=== PATIENT | male | born 1975 | race Caucasian/White ===

== ENCOUNTER 2021-04-06 13:23 | Outpatient (CLI) | payer BC ==
[~2021-04-06] VITALS: Ht 165.1 cm; Wt 79.0 kg
[~2021-04-06 13:23] MED LIST: ALBUTEROL 90 MCG/ACT 8GM HFA INHALER INH PRN; ALBUTEROL SULFATE 2.5 MG/0.5 ML INH NEB SOLN INH PRN; EPINEPHrine INJ 1 MG/ML 1ML AMP IM PRN; NS 1,000 ML IV SCH; diphenhydrAMINE 50MG/ML VIAL (J1200) IV PRN; methylPREDNISolone 125MG 2ML VIAL IV PRN
[2021-04-06] MEDS ORDERED: diphenhydrAMINE 25MG CAP PO ONE (13:30)
[2021-04-06] MEDS ORDERED: ACETAMINOPHEN TAB 650MG DOSE (2X325MG) PO ONE (13:30)
[2021-04-06] MEDS ORDERED: [UNRECOGNIZED DRUG - OTHER] IV ONE ×2 (13:30)
[2021-04-06 13:51] VITALS: BP 120/68
[2021-04-06 14:21] VITALS: BP 139/74
[2021-04-06 14:51] VITALS: BP 111/65
[2021-04-06 15:51] VITALS: BP 120/70
== END 2021-04-06 15:51 | disposition home or self-care (01) ==
LOC: M OPCLI4PR 13:23
PROVIDERS: ATTEND Physician Assistant Medical
DX: U07.1 COVID-19 (principal)

== ENCOUNTER → 2022-08-21 | Outpatient (CLI) | payer BC ==
[2022-08-21 13:29] LABS: HEMATOCRIT 43.6 % (42.0-52.0); HEMOGLOBIN 14.6 g/dl (13.5-17.5); MEAN CORPUSCULAR HEMOGLOBIN 31.5 pg (27.0-33.0); MEAN CORPUSCULAR HGB CONC 33.5 g/dl (32.0-36.5); PLATELET COUNT, AUTOMATED 223 10^3/uL (150-450); RED BLOOD COUNT 4.64 10^6/uL (4.30-6.10); WHITE BLOOD COUNT 15.1 10^3/uL (4.0-10.0)
[2022-08-21 14:01] LABS: ATYPICAL LYMPH 30 % (0-5); LYMPHOCYTES 32 % (16-44); MONOCYTES 9 % (0-5); NEUTROPHILS 29 % (28-66); TOXIC VACUOLATION 1+
[2022-08-21 14:02] LABS: ANISOCYTOSIS 1+; PLATELET ESTIMATE NORMAL (NORMAL); TOXIC GRANULATION 1+
[2022-08-21 14:30] LABS: ALBUMIN 3.6 G/DL (3.2-5.2); ALKALINE PHOSPHATASE 357 U/L (46-116); ALT/SGPT 451 U/L (7.0-40); AST/SGOT 187 U/L (<34); BILIRUBIN,TOTAL 0.7 MG/DL (0.3-1.2); BLOOD UREA NITROGEN 13 MG/DL (9-23); CALCIUM LEVEL 8.7 MG/DL (8.5-10.1); CARBON DIOXIDE LEVEL 28 MMOL/L (20-31); CHLORIDE LEVEL 104 MMOL/L (98-107); CREATININE FOR GFR 0.93 MG/DL (0.70-1.30); GLOMERULAR FILTRATION RATE > 60.0 (>60); GLUCOSE, FASTING 106 MG/DL (60-100); SODIUM LEVEL 137 MMOL/L (136-145); TOTAL PROTEIN 7.3 G/DL (5.7-8.2)
[2022-08-22 14:08] LABS: EBV AB TO NUCLEAR ANTIGEN <18.0 U/mL (0.0-17.9); EBV VIRAL CAPSID AG IgG 48.3 U/mL (0.0-17.9); EBV VIRAL CAPSID AG IgM >160.0 U/mL (0.0-35.9)
== END ==
LOC: M WUC 09:15
PROVIDERS: ATTEND Physician Assistant
DX: J03.90 Acute tonsillitis, unspecified (principal); J06.9 Acute upper respiratory infection, unspecified; R50.9 Fever, unspecified

== ENCOUNTER 2024-07-12 08:09 | Day surgery (SDC) | payer BC ==
[~2024-07-12] VITALS: Ht 165.1 cm; Wt 80.1 kg
[2024-07-12] MEDS ORDERED: propofoL 200 MG/20 ML VIAL As Ordered ONE (09:38)
[2024-07-12] MEDS ORDERED: LIDOCAINE 2% 100MG/5ML SDV (FOR ANES.) As Ordered ONE (09:38)
[2024-07-12 10:31] VITALS: TEMP 96.7
[2024-07-12 10:50] VITALS: BP 113/73; O2SAT 99
== END 2024-07-12 11:04 | disposition home or self-care (01) ==
LOC: M OPP 08:09
PROVIDERS: ATTEND Surgery
DX: Z12.11 Encounter for screening for malignant neoplasm of colon (principal); D12.8 Benign neoplasm of rectum; D12.5 Benign neoplasm of sigmoid colon; K21.00 Gastro-esophageal reflux disease with esophagitis, without bleeding; K44.9 Diaphragmatic hernia without obstruction or gangrene; K29.70 Gastritis, unspecified, without bleeding; K29.80 Duodenitis without bleeding; K30 Functional dyspepsia; F17.290 Nicotine dependence, other tobacco product, uncomplicated